=== PATIENT | female | born 1950 | race Two or more races ===

== ENCOUNTER 2016-05-04 08:17 | Day surgery (SDC) | payer OTHER ==
[~2016-05-04] VITALS: Ht 167.6 cm; Wt 68.5 kg
[2016-05-04] VITALS (27 sets, daily range): BP systolic 81–155; BP diastolic 30–83; PULSE 82–104; RESP 8–19; Ht 167.6 cm; Wt 68.5 kg
[~2016-05-04 08:17] MED LIST: BUPIVACAINE 0.5% (SDV) 30 ML INJ INJ ONE
[2016-05-04] MEDS ORDERED: CEFAZOLIN 1 GM/50 ML (PMX) 50 ML IVPB SCH (09:30)
[2016-05-04] MEDS ORDERED: MIDAZOLAM 1 MG/ML 2 ML INJ ONE (10:15)
[2016-05-04] MEDS ORDERED: CEFAZOLIN 1 GM INJ ONE (10:15)
[2016-05-04] MEDS ORDERED: ROCURONIUM 50 MG INJ ONE ×2 (10:15→13:16)
[2016-05-04] MEDS ORDERED: LIDOCAINE 2% (SDV) 5 ML INJ ONE (10:15)
[2016-05-04] MEDS ORDERED: PROPOFOL 20 ML ONE (10:15)
[2016-05-04] MEDS ORDERED: ROPIVACAINE 0.2% 20 ML VIAL ONE (10:20)
[2016-05-04] MEDS ORDERED: HYDROmorphONE (0.2 MG/ML) 10ML SYG IV PRN ×2 (10:30)
[2016-05-04] MEDS ORDERED: MEPERIDINE 25 MG INJ IV PRN (10:30)
[2016-05-04] MEDS ORDERED: DIPHENHYDRAMINE 50 MG INJ IV PRN (10:30)
[2016-05-04] MEDS ORDERED: ONDANSETRON 4 MG INJ IV PRN ×2 (10:30→15:30)
[2016-05-04] MEDS ORDERED: PROCHLORPERAZINE 10 MG INJ IV PRN (10:30)
[2016-05-04] MEDS ORDERED: FENTAnyl 50 MCG/ML VIAL IV PRN (10:30)
[2016-05-04] MEDS ORDERED: PHENYLephrine (100 MCG/ML) 5ML SYG ONE (11:50)
[2016-05-04] MEDS ORDERED: ONDANSETRON 4 MG INJ ONE (12:30)
[2016-05-04] MEDS ORDERED: DEXAMETHASONE 4 MG/ML 1 ML INJ ONE (12:30)
[2016-05-04] MEDS ORDERED: BUPIVACAINE 0.5% (SDV) 30 ML INJ ONE (12:33)
[2016-05-04] MEDS ORDERED: HYDROmorphONE 2 MG/ML SYG ONE (12:40)
[2016-05-04] MEDS ORDERED: ACETAMINOPHEN 1000MG/100ML IV 100 ML ONE (12:53)
[2016-05-04] MEDS ORDERED: CLINDAMYCIN 2% 40 GM VAG CR VAG SCH (13:00)
[2016-05-04] MEDS ORDERED: POLYMYXIN/BACITRACIN 1L IRRIG ONE (13:06)
[2016-05-04] MEDS ORDERED: POLYMYXIN/BACITRACIN 1L IRRIG IRR ONE (13:23)
[2016-05-04] MEDS ORDERED: NEOSTIGMINE 3 MG/3 ML SYRINGE ONE (14:10)
[2016-05-04] MEDS ORDERED: GLYCOPYRROLATE 0.4 MG INJ ONE (14:10)
[2016-05-04] MEDS ORDERED: METOCLOPRAMIDE 10 MG INJ ONE (14:12)
--- NOTE | 2016-05-04 15:06 | OPPN ---
Date/Time of Note Date/Time of Note DATE: 05/04/16 TIME: 15:04 Operative/Procedure Note Pre-Operative Diagnosis pelvic organ prolapse Post-Operative Diagnosis pelvic organ prolapse Procedure open sacrocolpopexy, omental flap, insertion mesh Surgeon: SAMPSON ESQUIVEL Findings intraperitoneal adhesions Implants/Grafts soft prolene mesh anterior and posterior vaginal wall Estimated blood loss: 100 - 150 ml's Drains: Not applicable Specimens: Not Applicable Complications: None Anesthesia type: general SAMPSON ESQUIVEL May 04, 2016 15:06
[2016-05-04] MEDS ORDERED: CEPASTAT LOZENGE MT PRN (15:30)
[2016-05-04] MEDS: CEFAZOLIN 2 GM/50 ML (PMX) 50 ML IVPB SCH ×2 (15:30→23:16)
[2016-05-04] MEDS ORDERED: HYDROmorphONE 1 MG/ML SYG IV PRN (15:30)
[2016-05-04] MEDS ORDERED: IBUPROFEN 600 MG TAB PO PRN (15:30)
[2016-05-04] MEDS ORDERED: HYDROCODONE/APAP (5/325) TAB PO PRN (15:30)
[2016-05-04 15:44] LABS: ADD UMIC YES; URINE BILIRUBIN (Dip) NEGATIVE (NEGATIVE); URINE BLOOD (Dip) 2+ (NEGATIVE); URINE COLOR LT. YELLOW (YELLOW); URINE GLUCOSE (Dip) NEGATIVE (NEGATIVE); URINE KETONES (Dip) TRACE (NEGATIVE); URINE LEUKOCYTE ESTERASE (Dip) NEGATIVE (NEGATIVE); URINE NITRITE (Dip) NEGATIVE (NEGATIVE); URINE TOTAL PROTEIN (Dip) NEGATIVE (NEGATIVE); URINE UROBILINOGEN (Dip) 0.2 E.U./dL (0.1-1.0)
[2016-05-04 15:53] LABS: BACTERIA,URINE FEW
--- NOTE | 2016-05-04 17:32 | CONS ---
DATE OF ADMISSION: 05/04/2016 DATE OF CONSULTATION: 05/04/2016 TYPE OF CONSULTATION: Internal medicine. REASON FOR CONSULTATION: A 65-year-old female medical consult request for history of pelvic prolapse into the vaginal wall. HISTORY OF PRESENT ILLNESS: A 65-year-old female with past medical history of hyperthyroidism, high cholesterol, who earlier today underwent surgical procedure, had an open sacral colpopexy omental flap and insertion of a mesh after having pelvic organ prolapse. This was performed by the urology team who asked for medical consult. The patient presently is recovering in the postop area. She is still kind of groggy and gives limited HPI but denied any chest pain or shortness of breath, no fevers or chills, no upper or lower GI bleeding. No nausea, vomiting. PAST MEDICAL HISTORY: As stated above. ALLERGIES: NO KNOWN DRUG ALLERGIES. MEDICATIONS AT HOME: Unknown. PAST SURGICAL HISTORY: She has had a ORIN and BSO in the past. SOCIAL HISTORY: She drinks coffee, but negative for smoking, drinking, or IV drug abuse. FAMILY HISTORY: Unknown. PHYSICAL EXAMINATION: VITAL SIGNS: T-max 98.9, pulse 82 to 88, respirations 8 to 13, blood pressure is 128/58, saturating at 99% 3 liters nasal cannula. GENERAL: The patient is lying in bed, somewhat lethargic from the anesthesia but in no acute distress. HEENT: Pupils equal, round, react to light. Extraocular muscles intact. NECK: Supple, no thyromegaly. LUNGS: Clear to auscultation bilaterally. CARDIOVASCULAR: S1, S2 heard. No rubs or gallops. ABDOMEN: Mild tenderness to palpation. No rebound or guarding. Hypoactive bowel sounds. MUSCULOSKELETAL: No lower extremity edema bilaterally. NEUROLOGIC: No focal deficits. LABORATORIES: UA showed trace ketones but negative leukocyte esterase, negative nitrites. IMAGING: There are no imaging studies there are no other labs. ASSESSMENT AND PLAN: A 65-year-old female status post open sacral colpopexy omental flap and insertion mesh after having pelvic prolapse. 1. Status post pelvic surgery. Again, follow up postop recommendations from the primary urology team. Continue pain control medications. Further recommendations. Consider checking labs in the morning. 2. High cholesterol. No present issues. Consider checking a lipid panel. 3. Hyperthyroidism. No present issues. Continue checking thyroid panel. Will continue to follow along with you. 4. For gastrointestinal prophylaxis, PPI and deep vein thrombosis prophylaxis, sequential compression devices. Dictated By: HEATH LESLIE Conf#: [id number] DID#: [id number] MTDD
[2016-05-04 17:42] LABS: BASOPHIL # 0.1 10^3/ul (0.0-0.1); BASOPHILS % 0.6 % (0.0-2.0); HEMATOCRIT 38.9 % (37.0-47.0); LYMPHOCYTES # 1.5 10^3/ul (0.8-2.9); MEAN CORPUSCULAR HEMOGLOBIN 30.2 pg (29.0-33.0); MEAN CORPUSCULAR HGB CONC 33.4 g/dl (32.0-37.0); MEAN CORPUSCULAR VOLUME 90.6 fl (82.0-101.0); MEAN PLATELET VOLUME 7.9 fl (7.4-10.4); MONOCYTE # 0.4 10^3/ul (0.3-0.9); NEUTROPHIL # 16.4 10^3/ul (1.6-7.5); NEUTROPHILS % 89.4 % (39.0-77.0); PLATELET COUNT 297 10^3/UL (140-440); RED CELL DISTRIBUTION WIDTH 13.3 % (11.5-14.5); UNCORRECTED WBC 18.4 10^3/ul (4.8-10.8); WHITE BLOOD COUNT 18.4 10^3/ul (4.8-10.8)
[2016-05-04 17:43] LABS: CONDITION 1
--- NOTE | 2016-05-04 17:43 | HP ---
DATE OF ADMISSION: 05/04/2016 CHIEF COMPLAINT: Pelvic organ prolapse. HISTORY OF PRESENT ILLNESS: This patient has a history of large pelvic organ prolapse and recurrent urinary tract infections. She complains of a bulge protruding through the vagina, which happens wi th moving and walking. Bulge reduces when she lies down. She is status post previous abdominal hys terectomy, bilateral salpingo-oophorectomy, which was done over 25 years ago for fibroids. Patient's workup has included a cystoscopy revealing no bladder tumors. High-grade cystocele was id entified. Complex urodynamics revealed a stable bladder up to about 350 mL, with no evidence of str ess incontinence; however, urgency incontinence at high volumes greater than 350 mL were seen. She has nocturia x2 with a slow force of stream. Occasional frequency and urgency. Double voiding. Sh rosemarie has history of urge incontinence, but no history of stress incontinence. Does not use any pads. Patient also has had recurrent urinary tract infections. In November 2015, the patient took Bactrim f or this problem. PAST MEDICAL HISTORY: Recurrent UTI. No diabetes, no hypertension, no elevated cholesterol. PAST SURGICAL HISTORY: Total abdominal hysterectomy, bilateral salpingo-oophorectomy, cholecystecto my. MEDICATIONS: P.r.n. antibiotics. ALLERGIES: NO KNOWN DRUG ALLERGIES. SOCIAL HISTORY: No smoke, no alcohol. FAMILY HISTORY: Aunt with some type of abdominal cancer. Otherwise, no breast cancer. No prostate cancer in the family. PHYSICAL EXAMINATION: CONSTITUTIONAL: Patient appears to be in no acute distress. GASTROINTESTINAL: Abdomen is soft, normal bowel sounds, nondistended, nontender. Hernia exam none noted. Liver and spleen normal. GENITOURINARY: Performed in my office revealed grade IV cystocele and enterocele, as well as a smal l rectocele. No urine leak with cough was elicited with full bladder. Labia normal. Kidneys, no C VA tenderness. LYMPHATIC: No lymphadenopathy noted in the neck, axilla, or groin. ASSESSMENT: 1. Large high-grade pelvic organ prolapse, including cystocele, enterocele, and some rectocele. 2. Stable bladder up to 350 mL. 3. Urgency incontinence with detrusor instability at volumes greater than 350 mL. RECOMMENDATIONS: I have spoken with the patient in detail about natural history and biology of pelv ic organ prolapse. We have discussed various treatment options. Among these options, the patient h as elected to undergo an open abdominal sacral colpopexy with insertion of mesh as well as omental f lap. This procedure has been explained to the patient in detail. Risks, benefits have been discuss ed. She understands that risks include though are not limited to infection, bleeding, damage to adj acent structures, heart problems, lung problems, possibility of need for further surgery, DVT, PE, M I, CVA, nonresolution of symptoms, recurrence of symptoms, worsening of symptoms, need for other lana atments, need for other surgeries, bowel injury, bladder injury, ureteral injury, vascular injury, m esh erosion, mesh adhesions, mesh erosion into the vagina, bladder, ureters, rectum, and adhesion to bowel. All of her questions have been answered. No guarantees given. She would like to proceed. Dictated By: SAMPSON ESQUIVEL MD, SR/NTS Conf#: [id number] DID#: [id number]
[2016-05-04 17:49] LABS: CHOL/HDL RATIO 5.2 RATIO
[2016-05-04 18:21] LABS: THYROID STIMULATING HORMONE 0.356 MIU/L (0.465-4.680)
[2016-05-04] MEDS: D5W-0.45 NACL + KCL 20 MEQ 1,000 ML IV SCH (19:24)
--- NOTE | 2016-05-04 21:04 | OPR ---
DATE OF OPERATION: 05/04/2016 OPERATING SURGEON: Vincent Aguilar MD ANESTHESTIOLOGIST: Janice Bonilla MD PREOPERATIVE DIAGNOSIS: Pelvic organ prolapse. POSTOPERATIVE DIAGNOSES: 1. Pelvic organ prolapse. 2. Intraperitoneal adhesions. OPERATION PERFORMED: 1. Open sacral colpopexy. 2. Insertion of mesh anterior vagina and posterior vagina. 3. Omental flap. 4. Lysis of adhesions. INDICATIONS FOR PROCEDURE: This patient has a history of pelvic prolapse. She is scheduled to unde rgo the above said procedure. The procedure has been explained to the patient in detail. Risk, ave efits have been discussed. She understands risks include, but are not limited to infection, bleedin g, damage to adjacent structures, heart problems, lung problems, possibility of need for further manisha shabbir, DVT, PE, CO, CVA, nonresolution of symptoms, recurrence of symptoms, need for other treatments , need for other surgeries, reoccurrence of prolapse, bowel injury, bladder injury, ureteral injury, vascular injury, bowel adhesions, mesh erosion, mesh erosion into bowel, bladder, rectum, ureter, o r vagina. The patient also understands that by performing this procedure and reducing her cystocele , this may unmask a preexisting stress incontinence. She understands that if stress incontinence oc curs, then she will proceed at a later time, possibly with a vaginal sling procedure. However, duri ng this surgery she prefers not to have a prophylactic vaginal sling performed. All of her question s have been answered, no guarantees given. She would like to proceed. FINDINGS: Intraperitoneal adhesions were encountered. Mesh was placed both anteriorly and posterio rly on the vagina. A soft polypropylene mesh was used. PROCEDURE IN DETAIL: The patient was brought to the operating room, underwent general endotracheal tube anesthesia. She was placed in the lithotomy position. Abdomen, perineum, and genitalia were p repped and draped in usual sterile fashion. The patient was placed in a slight Trendelenburg positi on. A Pfannenstiel incision was made. Incision was brought down to the subcutaneous layers. Subcu taneous layers were opened. The fascia was then opened transversely. Fascia was then dissected off the anterior rectus muscle towards the umbilicus as well as towards the pubic arch. Peritoneal cav ity was entered. The Bookwalter retractors were placed. At this point, intraperitoneal adhesions w ere encountered, which required dissection in order to gain access to the posterior cul-de-sac. Lar ge bowel as well as omental adhesions to the posterior bladder and pelvic sidewall were encountered. These adhesions were carefully taken down, taking care not to injure the colon. Furthermore, adhe sions to the abdominal wall were taken down, again careful dissection was carried to prevent injury to the bowel. Once all the adhesions had been taken down, the bowel was retracted out of the pelvis towards the abdominal cavity. Bowel was then gently tucked in this area using laparotomy pads and the Bookwalter retractor. An EEA sizer was placed into the vagina. The apex of the vagina was identified intraperitoneally. The peritoneum over the vagina was incised. Posterior cul-de-sac was opened. Rectum was then caref ully dissected off the vagina. This dissection was carried from the apex towards more distally. Re ctum was dissected with careful attention not to injure the rectum. Once about 4 cm of dissection h ad been carried, the posterior vaginal wall was examined. It was intact. At this point, attention was paid to placement of the mesh. A soft polypropylene mesh was brought into the surgical field. This mesh had been precut. The mesh was about 4 cm in width. The mesh was placed on the posterior vaginal wall. The mesh was then secured using 2-0 Agra-Paul sutures. Three rows of Agra-Paul were placed, each row containing 3 sutures for a total of 9 sutures. The sut ures were placed distally, then each was successfully placed more closer to the apex. The last row was just posterior to the apex of the vagina. The tail end of the mesh had been tapered to fit the size of the sacral promontory, therefore, was about 2 cm in width. Attention was then paid to the bladder. Bladder was instilled with saline. Next, the junction betw een the bladder and the anterior vaginal wall was identified. The vagina was then carefully dissect ed off the bladder. Extreme care was taken not to injure the bladder. Since patient had a prior hy sterectomy, the plane between the bladder and the vagina was somewhat fibrosed. The fibrotic proces s was carefully dissected. Care was taken not to injure the bladder. This dissection was carried a long the anterior vaginal wall all the way towards the bladder neck. Vagina was carefully dissected off the bladder in this fashion. Dissection was carried laterally until the vagina had been swept off the bladder. At this point, the bladder was hand irrigated. No extravasation was identified, i ndicating that the bladder was completely intact. A soft polypropylene mesh with a 4 cm width was placed onto the anterior vaginal wall. The mesh was placed all the way to the area of the bladder neck. Next, the mesh was secured against the anterio r vaginal wall using 2-0 Agra-Paul sutures. Nine sutures were placed, 3 in each row. The sutures we re placed distally, then midway, and then towards the apex of the vagina. This effectively fixed th e vagina against the anterior vaginal wall. Attention was then paid to identification of the sacral promontory. The peritoneum over the sacrum on the right side was incised. Dissection was carried down onto the right sacral promontory. This area was carefully dissected and cleared. The blood vessels were carefully dissected from this area ; about 3 cm width was obtained on the sacral promontory. The peritoneum incision was then extended all the way to the right side of the posterior cul-de-sac. Therefore, the posterior cul-de-sac inc ision and this peritoneal incision were connected to each other. Next, the posterior vaginal mesh w as placed on tension. It was brought against the sacral promontory. It was sutured against the sac ral promontory using a 2-0 Agra-Paul suture. At this point, the anterior mesh was placed on gentle t raction. The vagina was reduced. This was also sutured against the sacral promontory periosteum us ing 2-0 Agra-Paul suture. Three more sutures were placed. These 3 sutures all contained the anterio r and posterior vaginal meshes against the sacral promontory. Care was taken not to cause bleeding or put sutures through the blood vessels in this area. At this point, excess mesh was excised. The peritoneum was laid back over the mesh. The peritoneum was then closed over the mesh posteriorl y. This closure was carried from the sacral promontory all the way to the posterior cul-de-sac. Pe ritoneum was closed with 0 Vicryl running suture. Next, the posterior peritoneum mesh was closed wi th 0 Vicryl transverse suture. This effectively closed the posterior cul-de-sac. At this point, th e peritoneum of the bladder was closed against the lateral aspects of the peritoneum to also close t he lateral aspects of the peritoneal opening. At this point, attention was paid to performing a rotational flap of the omentum. The laparotomy pa ds retracting the bowel were temporarily removed. The omentum was brought into the pelvis. A rotat ional flap was created along the left blood supply of the omentum. The omentum was brought all the way down to the pelvis. It reached without any kind of tension. Next, the omentum was placed onto the anterior vaginal mesh. This was then secured using 2-0 Vicryl figure-of-8 sutures. Once the om entum was placed onto the anterior vaginal mesh, the peritoneum of the bladder was then further clos ed in order to completely cover the mesh. At this point, the mesh was in an extraperitoneal space w ithout any of it exposed to bowel. Bladder was reirrigated and no extravasation was identified, indicating no injury to the bladder. T he laparotomy pads were removed. The retractors were removed. The abdomen was swept. No instrumen ts or laparotomy pads were identified. The instruments were accounted. The laparotomy counts were accounted. The sutures were accounted. All the counts were correct. At this point, attention was paid to closure of the abdomen. A portion of the anterior rectus fascia, which had been opened long itudinally to obtain further access, was closed with #1 Vicryl figure-of-8 sutures. Next, the rectu s muscles were reapproximated using 0 Vicryl figure-of-8 sutures in an interrupted fashion. At this point, the transverse incision in the fascia through the Pfannenstiel incision was closed using 0 P DS looped suture. One suture was run from the left side to the midline and another from the right s sharon to the midline. The wound was then copiously irrigated with saline. The fascia was injected wi th 0.5% Marcaine. Next, the superficial fatty layer was closed using 0 Vicryl running suture. Skin was then closed with tresa. The subcutaneous layers were also injected with Marcaine. The patie nt, also at the beginning of the operation, had undergone a taps block by anesthesia. At the time o f closure of the fascia, patient had already been taken out of the Trendelenburg position. Once the skin was closed, the patient was taken out of the lithotomy position, placed in the supine position . Her urethral catheter was kept in place. No vaginal packing was placed. The patient was then aw akened, extubated, and taken to recovery room. POSTOPERATIVE CONDITION: Stable. COMPLICATIONS: None. ESTIMATED BLOOD LOSS: 150 mL. BLOOD ADMINISTERED: None. SPECIMENS SENT TO LAB: None. Dictated By: VINCENT AGUILAR MD SR/NTS Conf#: [id number] DID#: [id number]
[2016-05-05] MEDS: D5W-0.45 NACL + KCL 20 MEQ 1,000 ML IV SCH ×3 (03:17→17:26)
[2016-05-05] MEDS: KETOROLAC 30 MG INJ IV PRN ×2 (04:28→11:03)
[2016-05-05 04:32] VITALS: BP 116/57; PULSE 103; RESP 18
[2016-05-05] MEDS: PANTOPRAZOLE (EC) 40 MG TAB PO SCH (06:12)
[2016-05-05 06:17] LABS: POTASSIUM 3.9 mmol/L (3.5-5.1)
[2016-05-05 06:20] LABS: CALCIUM 8.2 mg/dl (8.4-10.2); CREATININE 0.52 mg/dl (0.44-1.00)
[2016-05-05] MEDS: CEFAZOLIN 2 GM/50 ML (PMX) 50 ML IVPB SCH (06:46)
[2016-05-05 07:01] LABS: BASOPHIL # 0.1 10^3/ul (0.0-0.1); BASOPHILS % 0.5 % (0.0-2.0); HEMATOCRIT 34.9 % (37.0-47.0); HEMOGLOBIN 11.6 g/dl (12.0-16.0); LYMPHOCYTES # 1.1 10^3/ul (0.8-2.9); LYMPHOCYTES % 8.6 % (15.0-51.0); MEAN CORPUSCULAR HEMOGLOBIN 30.2 pg (29.0-33.0); MEAN CORPUSCULAR HGB CONC 33.3 g/dl (32.0-37.0); MEAN CORPUSCULAR VOLUME 90.6 fl (82.0-101.0); MEAN PLATELET VOLUME 8.3 fl (7.4-10.4); MONOCYTE # 1.1 10^3/ul (0.3-0.9); MONOCYTES % 8.4 % (0.0-11.0); NEUTROPHIL # 10.5 10^3/ul (1.6-7.5); NEUTROPHILS % 82.5 % (39.0-77.0); PLATELET COUNT 248 10^3/UL (140-440); RED BLOOD COUNT 3.85 10^6/ul (4.20-5.40); RED CELL DISTRIBUTION WIDTH 13.1 % (11.5-14.5); UNCORRECTED WBC 12.7 10^3/ul (4.8-10.8); WHITE BLOOD COUNT 12.7 10^3/ul (4.8-10.8)
[2016-05-05 07:14] LABS: CONDITION 1
[2016-05-05 08:12] VITALS: BP 99/52; RESP 18
--- NOTE | 2016-05-05 15:04 | QN ---
Documentation Comment [id number] Lynn MD May 05, 2016 15:04
--- NOTE | 2016-05-05 15:35 | CONS ---
DATE OF ADMISSION: 05/04/2016 DATE OF CONSULTATION: 05/05/2016 TYPE OF CONSULTATION This is an internal medicine consultation. HISTORY OF THE PRESENT ILLNESS: The patient was initially seen by Dr. Aguilar. The patient is a 65-y ear-old female with past medical history of hyperthyroidism and dyslipidemia. She had an open sacra l colpopexy, omental flap and insertion of the mesh after having pelvic organ prolapse. Patient was seen by Dr. Stevens for status post pelvic surgery. The patient has dyslipidemia per Dr. Aguilar. The patient has open sacral colpopexy with insertion of mesh anterior vagina and posterior vagina. Omen noemy flap lysis of adhesion. Postop, the patient is stable. PAST MEDICAL HISTORY: As mentioned above, dyslipidemia. ALLERGY HISTORY: NEGATIVE. FAMILY HISTORY: Denies. SOCIAL HISTORY: Denies. MEDICATION HISTORY: Positive for: 1. Protonix. 2. Ancef. 3. Dilaudid. 4. Bowlegs. 5. Toradol. 6. Tylenol. 7. Ibuprofen. 8. Zofran. 9. Cepacol. 20. Intravenous fluids. REVIEW OF SYSTEMS: HEENT: Unremarkable. RESPIRATORY: Unremarkable. CARDIOVASCULAR: Unremarkable. ABDOMEN: Abdominal pain. EXTREMITIES: Unremarkable. GENITOURINARY: Unremarkable. MUSCULOSKELETAL: Unremarkable as mentioned. PHYSICAL EXAMINATION: GENERAL: The patient is awake, alert. VITAL SIGNS: Stable with pulse 93, blood pressure 99/52. HEAD: Atraumatic, normocephalic. Pupils equal, reactive to light. NECK: Supple. No JVD. LUNGS: Clear. CARDIOVASCULAR: S1, S2 normal. ABDOMEN: Soft, nontender. Bowel sounds positive. Dressing on the abdominal area. EXTREMITIES: No cyanosis, clubbing, edema. CENTRAL NERVOUS SYSTEM: The patient is awake, alert, no focal deficit. LABORATORY DATA: WBC 12.7, hematocrit 34.9. IMPRESSION: The patient has a history of large pelvic organ prolapse and recurrent urinary tract in fection. She has complaints of bulge protruding through the vagina. She has history of abdominal h ysterectomy, bilateral salpingo-oophorectomy. The patient underwent open sacral colpopexy with inse rtion of mesh anterior vagina and posterior vagina omental flap, lysis of adhesions and mild leukocy tosis. PLAN: To continue current treatment. Follow recommendations from Dr. Aguilar. Orders were reviewed. Laboratory data will be followed. Dictated By: LEE RASCON/SAMIR Conf#: [id number] DID#: [id number]
--- NOTE | 2016-05-05 20:00 | PN ---
RENETTA PETERS NP 05/05/161999: Date/Time of Note Date/Time of Note DATE: 05/05/16 TIME: 19:52 Assessment/Plan Lines/Catheters IV Catheter Type (from Nrs): Peripheral IV Canela in Place (from Nrs): Yes Subjective 24 Hr Interval Summary Constitutional: ambulates, flatus (No flatus), no complaints (complains of abdominal pain when standing. Pain resolves in supine position. ), urine output (Canela in place with clear urine output) Feeding: advancing diet (Advance to full liquid as tolerated) Pain Control: moderate (Pain with standing, Toradol helps. ) Detailed Summary Respiratory: no complaints Cardiovascular: no complaints Neurologic: no complaints Exam/Review of Systems Vital Signs Vitals Vital Signs Date Time Temp Pulse Resp B/P Pulse Ox O2 Delivery O2 Flow Rate FiO2 05/05/16 08:12 98.2 93 18 99/52 97 05/05/16 04:32 Nasal Cannula 2.0 Intake and Output 05/04/16 05/04/16 05/05/16 15:00 23:00 07:00 Intake Total 1350 ml Output Total 1000 ml Balance 350 ml Results Result Diagram: 05/06/16 0430 05/06/16 043 SAMPSON ESQUIVEL 05/06/16 0755: Assessment/Plan Lines/Catheters IV Catheter Type (from Nrs): Peripheral IV Canela in [facility] ([facility]): Yes Assessment/Plan Chief Complaint/Hosp Course POD one sacrocolpopexy Increase pain and decreased bowel activity Problems: Assessment/Plan Ambulate D/C canela tomrw Cont IVF Advance diet tomrw Pain control Subjective 24 Hr Interval Summary Minimal ambulation No flatus C/O increased pain Exam/Review of Systems Vital Signs Vitals Vital Signs Date Time Temp Pulse Resp B/P Pulse Ox O2 Delivery O2 Flow Rate FiO2 05/05/16 20:20 98.9 92 20 134/65 95 05/05/16 04:32 Nasal Cannula 2.0 Intake and Output 05/05/16 05/05/16 05/06/16 15:00 23:00 07:00 Intake Total 2050 ml 2450 ml Output Total 1300 ml 3600 ml Balance 750 ml -1150 ml Exam Free Text/Dictation Abd slight distention Dressing Dry intact, no erythema Results Result Diagram: 05/06/16 0430 05/06/16 0430 RENETTA PETERS NP May 05, 2016 20:00 SAMPSON ESQUIVEL May 06, 2016 07:55
[2016-05-05 20:20] VITALS: BP 134/65; RESP 20
[2016-05-06] MEDS: ACETAMINOPHEN 325 MG TAB PO PRN ×2 (00:35→07:05)
[2016-05-06] MEDS: D5W-0.45 NACL + KCL 20 MEQ 1,000 ML IV SCH ×2 (00:37→08:49)
[2016-05-06 05:34] LABS: BASOPHILS % 0.4 % (0.0-2.0); EOSINOPHILS % 0.1 % (0.0-7.0); HEMATOCRIT 31.7 % (37.0-47.0); HEMOGLOBIN 10.7 g/dl (12.0-16.0); LYMPHOCYTES # 2.6 10^3/ul (0.8-2.9); LYMPHOCYTES % 23.6 % (15.0-51.0); MEAN CORPUSCULAR HEMOGLOBIN 30.3 pg (29.0-33.0); MEAN CORPUSCULAR HGB CONC 33.6 g/dl (32.0-37.0); MEAN CORPUSCULAR VOLUME 90.1 fl (82.0-101.0); MEAN PLATELET VOLUME 8.1 fl (7.4-10.4); MONOCYTES % 9.1 % (0.0-11.0); NEUTROPHIL # 7.4 10^3/ul (1.6-7.5); NEUTROPHILS % 66.8 % (39.0-77.0); PLATELET COUNT 229 10^3/UL (140-440); RED BLOOD COUNT 3.52 10^6/ul (4.20-5.40); UNCORRECTED WBC 11.1 10^3/ul (4.8-10.8); WHITE BLOOD COUNT 11.1 10^3/ul (4.8-10.8)
[2016-05-06] MEDS: PANTOPRAZOLE (EC) 40 MG TAB PO SCH (05:45)
[2016-05-06 05:53] LABS: ALBUMIN 3.2 g/dl (3.3-4.9)
[2016-05-06 05:54] LABS: POTASSIUM 4.3 mmol/L (3.5-5.1)
[2016-05-06 05:56] LABS: ALBUMIN/GLOBULIN RATIO 1.03; BILIRUBIN,INDIRECT 0.9 mg/dl (0-1.1); BILIRUBIN,TOTAL 0.9 mg/dl (0.2-1.3); CREATININE 0.55 mg/dl (0.44-1.00); TOTAL PROTEIN 6.3 g/dl (6.1-8.1)
[2016-05-06 05:57] LABS: CALCIUM 8.2 mg/dl (8.4-10.2)
[2016-05-06 06:02] LABS: CONDITION 1
[2016-05-06 08:17] VITALS: BP 122/57; RESP 18
--- NOTE | 2016-05-06 08:27 | PDOCDIS ---
Discharge Instructions CONDITION Patient Condition: Good HOME CARE INSTRUCTIONS: Special Diet: SOFT DIET, UNTIL BOWEL MOVEMENT ACTIVITY: Activity Restrictions: Slowly Increase Activity No Sexual Activity Avoid Heavy Housework (No heavy lifting more than 5 pounds for 6 weeks) Bathing Restrictions: ShowerActivity Restrictions Comment: OK to get wounds wet and shower FOLLOW UP/APPOINTMENTS Appointments Dr Aguilar's office 1 -2 weeks SCHOOL/WORK RELEASE May return to School/Work with: With Restrictions (return to work in 2 weeks, but no lifting for 6 weeks) SAMPSON AGUILAR May 06, 2016 08:27
[2016-05-06] MEDS ORDERED: HYDR-906 PO (08:32)
--- NOTE | 2016-05-06 22:37 | DS ---
DATE OF ADMISSION: 05/04/2016 DATE OF DISCHARGE: 05/06/2016 ADMISSION DIAGNOSIS: Pelvic organ prolapse. DISCHARGE DIAGNOSIS: Pelvic organ prolapse. HOSPITAL COURSE: The patient was admitted to the hospital, underwent a sacral colpopexy, lysis of a dhesions and omental flap with the insertion of mesh. She tolerated the procedure well. By postope rative day #2, she was ambulating, tolerating her diet, and remaining afebrile. Pain was well contr olled. She was discharged home. DISCHARGE INSTRUCTIONS: Activity as tolerated. No heavy lifting. The patient may shower. Follow up in 1 to 2 weeks. The patient was instructed not to lift anything heavy beyond 5 pounds for 6 wee ks. MEDICATIONS: 1. [place]. 2. Bactrim 3. Colace. Dictated By: SAMPSON ESQUIVEL MD SR/NTS Conf#: [id number] DID#: [id number]
== END 2016-05-06 17:05 | disposition home or self-care (01) ==
LOC: SDS 08:17 → UNDOADMIN 15:07 → MS1 15:07 → SDS 05-06 17:05 → UNDODISIN 05-06 17:05
PROVIDERS: ATTEND Surgery Surgical Oncology
DX: N81.89 Other female genital prolapse (principal); E78.5 Hyperlipidemia, unspecified
CPT/HCPCS: 57280; 80048; 80053; 80061; 81001; 83036; 84443; 85025; 87086; J0131; J0690; J1100; J1170; J1885; J2250; J2370; J2405; J2710; J2765; J2795; J3010; J3480; Z7512; Z7610; 81003